=== PATIENT | female | born 1950 | race Two or more races ===

== ENCOUNTER 2018-09-27 21:03 | Emergency (ER) | payer OTHER ==
[~2018-09-27] VITALS: Ht 162.6 cm; Wt 52.2 kg
[~2018-09-27 21:03] MED LIST: CYMBALTA60 MG PO; PLAQUENIL PO; PRENISONE PO; PROVENTIL S1 ML/5 MG IH; TOPROL XL100 M1 PO
== END 2018-09-27 22:36 | disposition home or self-care (01) ==
LOC: ER 21:03
DX: T78.49XA Other allergy, initial encounter (principal); R21 Rash and other nonspecific skin eruption